=== PATIENT | female | born 1980 | race Two or more races ===

== ENCOUNTER 2018-11-14 22:00 | Emergency (ER) | payer BC, OTHER ==
[~2018-11-14] VITALS: Ht 154.9 cm; Wt 70.3 kg
[2018-11-14 22:48] VITALS: BP 129/78
== END 2018-11-15 02:07 | disposition home or self-care (01) ==
LOC: ER 22:03
DX: M79.632 Pain in left forearm (principal); M79.631 Pain in right forearm; M62.838 Other muscle spasm; V47.5XXA Car driver injured in collision with fixed or stationary object in traffic accident, initial encounter; Y93.89 Activity, other specified; Y99.8 Other external cause status; Y92.410 Unspecified street and highway as the place of occurrence of the external cause